=== PATIENT | male | born 2000 | race Two or more races ===

== ENCOUNTER 2024-10-22 21:33 | Emergency (ER) | payer OTHER ==
[~2024-10-22] VITALS: Ht 180.3 cm; Wt 65.8 kg
[2024-10-22 22:13] VITALS: BP 116/73; O2SAT 993
== END 2024-10-23 00:32 | disposition home or self-care (01) ==
LOC: ER 21:35
DX: G89.11 Acute pain due to trauma (principal); F41.8 Other specified anxiety disorders; S90.01XA Contusion of right ankle, initial encounter; S70.02XA Contusion of left hip, initial encounter; W18.39XA Other fall on same level, initial encounter; Y93.89 Activity, other specified; Y92.89 Other specified places as the place of occurrence of the external cause